=== PATIENT | male | born 1990 | race Caucasian/White ===

== ENCOUNTER 2017-08-03 12:46 | Inpatient (IN) | payer OTHER ==
[~2017-08-03] VITALS: Ht 180.3 cm; Wt 74.8 kg
[2017-08-03 15:20] VITALS: BP 121/68
--- NOTE | 2017-08-03 15:20 | NUR ---
Pre-admission Notes: Client seen in intake at this time. He is alert and oriented x 4. Verbally responsive. Presented with flat affect but with good eye contact. Informed client of the admission process and able to verbalize good understanding. Able verbalize his needs well and answers questions appropriately regarding the admission process. Client states that he is here to detox off of ETOH. Reports relapsing 1 and a half weeks ago. He denies any allergies to any food or medication. Denies seizure history. Reports having a past medical hx of anxiety, depression, tonsillectomy, asthma and insomnia. Patient smokes 1 pack of cigarettes a day. Smoking cessation education handout provided. VS upon admission as ff: Temp 98.1, Pulse 79, RR 20, BP 121/68, PL 0/10. Reports mild anxiety, mild sweats, mild headache and chills. Dr. Harry in intake office and assessed patient. Will continue with the admission process when patient is in the unit.
--- NOTE | 2017-08-03 15:45 | NUR ---
Admission Note: Admitted a 27 year old male under the care of Dr. Mulugeta Harry who states that he is voluntarily here to safely detox from ETOH. He is alert and verbally responsive. Oriented x 4. Able to make all his needs known. Affect is flat, appears anxious and worried. Redirected as needed with help. Reassurance provided. Respirations even and unlabored. Body search done. No contraband was found. Skin check done. Skin clear and intact. No skin breakdown noted. No rashes. No lesions noted. Lung sounds clear upon auscultation. Abdomen soft and non-distended. Denies N/V/D or constipation noted. LBM was 08/02/2017. Bladder non-distended. Voids independently. Ambulatory ad bertha with steady gait. Able to provide urine for UDS. He reports NKA and no seizure history. Has past medical hx of tonsillectomy, anxiety (1 year ago), depression (1 year ago), insomnia (1 year ago), and asthma. Denies any family hx of substance abuse. He denies having a PCP. Patient brought in home meds: Lexapro, Seroquel, and Proair HFA inhaler. He is currently unemployed. He has stuggled with multiple attempts of sobriety. The cause of this relapse was due to difficulty coping with negative emotions related to seeing his grandmother in the hospital. He reports remaining sober from heroin x 90 days. Substance Use Hx: 1. ETOH - since 14 years old. Patient reports drinking 8 beers and 1 pint of Tequila daily x 1 and a half weeks. Last use was 08/02/2017, 8 beers and 1 pint of Vodka. 2. Marijuana - since 14 years old. Patient smokes 3 grams of marijuana intermittently daily. Treatment Hx: 1. [facility] x 7 days in May 08, [address] [facility] x 45 days in May 16, 2017 Dr. Harry entered in admission orders. Patient was kept on fall precautions. Educated use of call light and education provided regarding unit's policies and procedures. Patient verbalized good understanding.
[2017-08-03 15:56] LABS: BASOPHILS # (AUTO) 0.1 K/uL (0.0-8.0); BASOPHILS % (AUTO) 0.7 % (0.0-2.0); EOSINOPHILS # (AUTO) 0.2 K/uL (0.0-0.7); EOSINOPHILS % (AUTO) 2.2 % (0.0-7.0); HEMATOCRIT 48.9 % (40-50); HEMOGLOBIN 16.4 G/DL (14.0-18.0); LYMPHOCYTES # (AUTO) 2.1 K/UL (0.8-4.8); LYMPHOCYTES % (AUTO) 24.1 % (20.5-51.5); MEAN CORPUSCULAR HEMOGLOBIN 29.4 UUG (27.0-31.0); MEAN CORPUSCULAR HGB CONC 34 g/dL (32.0-37.0); MEAN CORPUSCULAR VOLUME 87.4 FL (82.0-92.0); MONOCYTES # (AUTO) 0.6 K/UL (0.1-1.30); MONOCYTES % (AUTO) 6.4 % (0.0-11.0); NEUTROPHILS # (AUTO) 5.9 K/UL (1.8-8.9); NEUTROPHILS % (AUTO) 66.6 % (38.5-71.5); PLATELET COUNT (AUTO) 334 K/UL (150-450); RED BLOOD CELL COUNT(AUTO) 5.59 MIL/UL (4.7-6.1); WHITE BLOOD COUNT (AUTO) 8.9 K/UL (4.0-11.2)
[2017-08-03 16:00] VITALS: BP 121/68
[2017-08-03 16:07] LABS: ALANINE AMINOTRANSFERASE 30 U/L (16-63); ALKALINE PHOSPHATASE 74 U/L (50-136); ASPARTATE AMINOTRANSFERASE 36 U/L (15-37); BILIRUBIN,TOTAL 0.4 mg/dL (0.2-1.0); CARBON DIOXIDE 30 mmol/L (21-32); CHLORIDE 105 mmol/L (98-107); GLUCOSE 88 mg/dL (74-106); MAGNESIUM 1.9 mg/dL (1.8-2.4); POTASSIUM 4.1 mmol/L (3.5-5.1); TOTAL PROTEIN, SERUM 7.6 g/dL (6.4-8.2); UREA NITROGEN, BLOOD 10 mg/dL (7-18)
--- NOTE | 2017-08-03 16:13 | NUR ---
Vitamin B1 injection not administered: Patient refused B1 injection at this time. Patient education provided but still refused. Patient states "I don't like those things, I'm OK." Will continue to monitor.
[2017-08-03] MEDS ORDERED: QUET200T PO (16:16)
[2017-08-03] MEDS ORDERED: ESCI20TA PO (16:16)
[2017-08-03] MEDS ORDERED: ALBU8.5H8 IH (16:17)
[2017-08-03 16:31] LABS: *AMPHETAMINE, URINE NEGATIVE (NEGATIVE); *BARBITURATE, URINE NEGATIVE (NEGATIVE); *CANNABINOID, URINE POSITIVE (NEGATIVE); *COCCAINE, URINE NEGATIVE (NEGATIVE); *OPIATE, URINE NEGATIVE (NEGATIVE); *PHENCYCLIDINE SCREEN,URINE NEGATIVE (NEGATIVE)
[2017-08-03 17:05] LABS: ETHANOL < 3 MG/DL (0-0)
--- NOTE | 2017-08-03 18:56 | NUR ---
End of Shift Notes: Patient admitted today for ETOH dependence. On PRNs at this time to manage his withdrawal symptoms. VS monitored closely. No significant abnormalities noted. Withdrawal symptoms monitored closely. Last CIWA 2 due to anxiety and mild sweats. Consumed 100% of dinner. Compliant with care and treatment. Will continue to monitor.
--- NOTE | 2017-08-03 19:00 | NUR ---
Start of Shift Patient Received. Patient is in his room, awake, alert and verbally responsive. Breathing even and non labored. Patient is a 27 year old male admitted on 08/03/17 for ETOH Dependence under the care of Dr. Harry. Patient is currently receiving PRN Medications for increased signs and symptoms of withdrawal. Patient verbalizes no known allergies, wishes to be full code, following a regular diet, placed on fall and seizure precautions. Skin is noted intact. Past medical history noted as Tonsillectomy, Asthma, Depression, Anxiety. Per endorsement, patient noted with admission CIWA of 2. All needs attended to promptly. Will continue plan of care as ordered.
[2017-08-03 20:16] VITALS: BP 124/65
--- NOTE | 2017-08-03 21:10 | NUR ---
PRN Medication Administration Patient is noted with slight wheezing. Patient states its probably from smoking but with my inhaler it will go away. PRN ProAir administered as per order. Will continue to monitor.
--- NOTE | 2017-08-03 22:00 | NUR ---
PRN Medication Reassessment Patient noted in room, awake and watching TV. Breathing even and non labored. Patient is able to verbalize the inhaler helped. PRN ProAir noted to be effective. Will continue to monitor.
[2017-08-04 00:48] VITALS: BP 110/68
[2017-08-04 04:15] VITALS: BP 106/55
--- NOTE | 2017-08-04 07:05 | NUR ---
End of Shift Patient is in bed sleeping. Breathing even and non labored. Patient is a 27 year old male admitted on 08/03/17 for ETOH Dependence and is currently receiving PRN Medications for increased signs and symptoms of withdrawal. No known allergies, Full Code, Regular Diet, placed on fall and seizure precautions. Skin is noted intact. Last noted CIWA 3. Patient received PRN Proair with medication noted to be effective. All needs attended to promptly. Will endorse to continue plan of care as ordered.
--- NOTE | 2017-08-04 07:06 | NUR ---
Start of Shift Notes: Received patient in his room. Alert and oriented x 4. Verbally responsive. Able to make his needs known. Respirations even and unlabored. No SOB noted. Skin warm and dry to touch. Abdomen soft and non-distended with (+) BS in all 4 quadrants. No complains of N/V/D or constipation noted. Bladder non-distended. Voids independently. Ambulatory ad bertha with steady gait. Patient is a 27 year old male admitted for ETOH dependence. Has past medical hx of tonsillectomy, anxiety, and depression. NKA. FULL CODE. Regular diet. Prior to admission, patient was using 8 beers to 1 pint of Tequila daily. No seizure history. Educated patient on his current plan of care for the day and his medication regimen. Encouraged oral fluid intake and encouraged group participation to learn new skills to prevent relapse. Will continue to monitor throughout the day.
[2017-08-04 08:00] VITALS: BP 125/81
--- NOTE | 2017-08-04 09:10 | NUR ---
Ativan 1 mg PO given: Patient's CIWA 6, presented with anxiety, sweating and gross tremors. Medicated patient with Ativan 1 mg PO as ordered per CIWA score. Will monitor for effectiveness.
--- NOTE | 2017-08-04 10:10 | NUR ---
Re-assessment: CIWA 4, less sweating, tremors and relief from anxiety noted. PRN Ativan 1 mg PO was effective.
[2017-08-04 12:00] VITALS: BP 97/54
--- NOTE | 2017-08-04 15:41 | NUR ---
Psych MD Visit: Seen and examined by Dr. Obregon at this time and reconciled patient's psych meds. Patient education provided.
[2017-08-04 16:00] VITALS: BP 114/78
--- NOTE | 2017-08-04 17:06 | NUR ---
Motrin 400 mg PO and Clonidine 0.1mg PO given: Patient noted with muscle aches, mild sweats, anxiety and restlessness. Patient does not meet criteria at this time for PRN Ativan administration. PRN Clonidine 0.1mg PO and Motrin 400 mg PO given as ordered. Will monitor for effectiveness.
--- NOTE | 2017-08-04 18:06 | NUR ---
Re-assessment: Patient verbalizes relief from muscle aches, anxiety, sweats and restlessness. PRN Clonidine and Motrin were effective.
--- NOTE | 2017-08-04 19:00 | NUR ---
Start of Shift Patient Received. Patient is in bed, awake, alert and verbally responsive. Breathing even and non labored. Patient is a 27 year old male admitted on 08/03/17 for ETOH Dependence and is currently receiving PRN Medications for increased signs and symptoms of withdrawal. No known allergies, Full Code, Regular Diet, placed on fall and seizure precautions. Skin is noted intact. Per endorsement, patient received PRN Ativan 1mg, Clonidine, and Motrin with last CIWA noted to be 2. All needs attended to promptly. Will endorse to continue plan of care as ordered.
--- NOTE | 2017-08-04 19:02 | NUR ---
End of Shift Notes: Patient continues to be on PRN Ativan to manage his withdrawal symptoms. VS monitored closely. No significant abnormalities noted. Withdrawal symptoms were closely monitored. Initial CIWA 6, patient presented with anxiety, sweats, facial flushing and gross tremors. Medicated patient with Ativan 1 mg PO as ordered. At 1700, patient was given Clonidine 0.1mg PO and Motrin 400 mg PO for myalgia and sweats, anxiety with help after 1 hour. Last CIWA 4. Per patient, PRN Ativan has been effective in reducing patients withdrawal symptoms. Able to participate in group and activities. Compliant with care and treatment. All needs met and attended. Will continue to monitor closely and endorse to night nurse for continuity of care.
[2017-08-04 20:47] VITALS: BP 118/64
[2017-08-05 00:27] VITALS: BP 99/58
[2017-08-05 04:14] VITALS: BP 96/51
--- NOTE | 2017-08-05 07:17 | NUR ---
End of Shift Patient is in bed sleeping. Breathing even and non labored. Patient is a 27 year old male admitted on 08/03/17 for ETOH Dependence and is currently receiving PRN Medications for increased signs and symptoms of withdrawal. No known allergies, Full Code, Regular Diet, placed on fall and seizure precautions. Skin is noted intact. No PRN medications administered. Last CIWA noted to be 1. All needs attended to promptly. Will endorse to continue plan of care as ordered.
--- NOTE | 2017-08-05 07:55 | NUR ---
START OF SHIFT Rcvd endorsement from ongoing nurse, client is in bed, he is a/o x 4, he presents with depressed mood, flat affect, flushed face, and clammy skin. He reports abdominal cramps, decreased appetite and anxiety. Client denies any N/V/D. He denies any SI/HI. Encouraged client to attend group therapy for skills to maintain sober. Encouraged client to increase PO fluid as tolerated to facilitate detox. Client is a 27 y/o male, admitted to [facility] for withdrawal from alcohol. Client has a Ativan 1mg PO q2h PRN CIWA 8-14, Ativan 2mg PO q2h PRN CIWA 15+ and notify MD. Client had an uneventful night, he slept 8 hrs. He denies any hx of of withdrawal-induced seizures, he is on seizure precautions. He reports NKA, he is full code, Regular diet. Side rails x 2 up/padded. Call light within reach.
[2017-08-05 08:18] VITALS: BP 107/60
[2017-08-05 11:06] LABS: HEPATITIS B SURFACE AG Negative (Negative)
[2017-08-05 12:00] VITALS: BP 107/65
[2017-08-05 16:55] VITALS: BP 119/64
--- NOTE | 2017-08-05 19:06 | NUR ---
END OF SHIFT Client is a 27 y/o male, admitted to [facility] for withdrawal from alcohol. Client has Ativan 1mg PO q2h PRN CIWA 8-14, Ativan 2mg PO q2h PRN CIWA 15+ and notify MD. Client is scheduled for discharge tomorrow to [facility]. He verbalized that he is ready to continue his treatment to maintain sobriety. Client was compliant with group therapy. Adequate PO fluid intake 1710mL, void x 3, stool x 1. He denies any hx of of withdrawal-induced seizures, he is on seizure precautions. He reports NKA, he is full code, Regular diet. Side rails x 2 up/padded. Call light within reach.
--- NOTE | 2017-08-05 19:18 | NUR ---
Albuterol PRN Px requested to use his Albuterol inhaler. ProAir inhaler given as PRN med, px puff 2x. We'll continue to monitor.
[2017-08-05 20:00] VITALS: BP 126/69
--- NOTE | 2017-08-05 20:00 | NUR ---
Start of Shift Notes Received 27 y/o, male px. Admitted for ETOH dependence. Px is A&Ox4, NKA, on regular diet, Full Code. For D/C tomorrow, 08/06/2017. During the rounds at 1930, No complaints made. Encouraged client to increase PO fluid as tolerated. PPD test to examine results tomorrow 08/06/2017 at 0900. Side rails x 2 up/padded. Call light within reach. Well continue to monitor.
[2017-08-06] VITALS: BP 120/71
--- NOTE | 2017-08-06 | NUR ---
CIWA deferred CIWA deferred due to px is sleeping, to assess if the px is awake per doctor's order. We'll continue to monitor.
[2017-08-06 04:00] VITALS: BP 117/60
--- NOTE | 2017-08-06 04:00 | NUR ---
CIWA deferred CIWA deferred due to px is sleeping, to assess if the px is awake per doctor's order. We'll continue to monitor.
--- NOTE | 2017-08-06 07:13 | NUR ---
End of Shift Notes 27 y/o, male px. Admitted for ETOH dependence. Px is A&Ox4, NKA, on regular diet, Full Code. For D/C today, 08/06/2017. During the shift, No complaints made. To assess skin results of PPD on left forearm at 0900. Encouraged client to increase PO fluid as tolerated. Used his Albuterol inhaler 1x as PRN. Oral intake of 900 ml, voided 3x, no BM. Slept for 8 hrs. Last CIWA 1. Side rails x 2 up/padded. Call light within reach. We'll continue to monitor.
--- NOTE | 2017-08-06 07:15 | NUR ---
Start of Shift Patient Received from maintenance mechanic 2nd shift nurse. Patient is a 27 year old male, admitted on 08/03/17 for ETOH Dependence, under the care of Dr. Harry. Pt is full code regular diet on fall and seizure precautions denies any food or drug allergies. Patient completed his 5 day Ativan taper. Reports past medical HX of tonsillectomy, anxiety, and depression. Treatment plan tolerated well by the patient as evidenced by pts last CIWA score of 1 which was taken at 0400. Pt is to be discharged today. Pt did not received any PRN medication last night. Pt is currently in his room laying in bed watching TV. All safety measures in place per hospital policy. Bed in lowest position, side rails up x2, call-light within reach. Will continue to monitor and provide support.
[2017-08-06 08:00] VITALS: BP 113/74
--- NOTE | 2017-08-06 09:30 | NUR ---
DISCHARGE NOTE Pt is in stable condition. Vitals WNL, Pt alert and oriented x4, skin intact, Pt denies any SI/HI. All discharge paperwork completed dated and signed. Pt educated about discharge instructions, what to do after discharge when to contact MD as well as the s/s reportable to MD, pt verbalized understanding. Pt was provided with all of his discharge paperwork. Pt's last CIWA:1 taken at 0800. Pt was discharged from [facility] on 08/06/17 at 0927. Pt left the building with all of his belongings, prescriptions and medications. MD and psychiatrist have been contacted notified and aware of pt's d/c.
== END 2017-08-06 09:27 | DRG 895 ==
LOC: SRC 14:38
PROVIDERS: ADMIT Internal Medicine; ATTEND Internal Medicine
PROC: HZ2ZZZZ Detoxification Services for Substance Abuse Treatment (ICD-10-PCS; principal; 2017-08-03)
PROC: HZ31ZZZ Individual Counseling for Substance Abuse Treatment, Behavioral (ICD-10-PCS; 2017-08-05)
DX: F10.230 Alcohol dependence with withdrawal, uncomplicated (principal); F33.2 Major depressive disorder, recurrent severe without psychotic features; F11.21 Opioid dependence, in remission; F17.210 Nicotine dependence, cigarettes, uncomplicated; Y90.9 Presence of alcohol in blood, level not specified; J45.20 Mild intermittent asthma, uncomplicated; Z81.8 Family history of other mental and behavioral disorders; Z80.42 Family history of malignant neoplasm of prostate; G47.00 Insomnia, unspecified; F41.9 Anxiety disorder, unspecified; Z79.899 Other long term (current) drug therapy; F12.90 Cannabis use, unspecified, uncomplicated
CPT/HCPCS: 36415; 70030-TC; 80307; 80349; 83735; 85025; 86580; 86592; 86705; 86803; 87340; 87806; G0480